=== PATIENT | male | born 2005 | race Caucasian/White ===

== ENCOUNTER 2025-10-27 23:41 | Emergency (ER) | payer MEDICARE, SELFPAY ==
[2025-10-28] VITALS: BP 133/85; PULSE 94; RESP 20; TEMP 35.9; O2SAT 96; BMI 26.4
[2025-10-28 01:20] LABS: PCR FLU A POSITIVE PCR FLU A (Negative); PCR FLU B Negative PCR FLU B (Negative); PCR RSV Negative PCR RSV (Negative); SARS PCR* Negative SARS-CoV-2 (Negative)
--- NOTE | 2025-10-28 02:12 | ED_ITS ---
HPI - General Adult General Chief complaint: Cough Stated complaint: trouble breathing Time Seen by Provider: 10/28/25 00:45 Source: patient and family Mode of arrival: ambulatory Limitations: no limitations History of Present Illness HPI narrative: 20-year-old male presents with his mother to the emergency room for shortness of breath and cough. He has had intermittent fevers. Symptoms originally started on the , worsening on the . Headache, body aches fatigue. Has been using DayQuil, NyQuil and Tylenol intermittently with temporary improvement of symptoms but they do return. He comes in because he is apprised that he is still illness long and he is feeling more short of breath. No difficulty ambulating, feels generally weak. No fever, tachypnea or hypoxia noted in triage. Patient and his mother are quite frustrated with the 2 hour wait to be seen, did not seem to notice the high acuity of other patients in the ED, in the wee hours today. No history of reactive airway disease or chronic pulmonary disease. No history of cardiac or neurological issues. He feels nauseated but is not having vomiting. No diarrhea. Did not receive a flu vaccine this year. Past medical history benign per his report, no major long-term health problems. No long-term medications or allergies. ROS is notable for the respiratory, GI and generalized symptoms as above, otherwise denies x 12 systems Related Data Previous Rx's ?Medication ?Instructions ?Recorded albuterol sulfate 90 mcg/actuation 2 inh inhalation Q4 -6H PRN 10/28/25 aerosol inhaler shortness of breath or wheez ing #8.5 grams azithromycin 250 mg tablet See Rx Instructions PO .COM PLEX #6 10/28/25 tabs inhalational spacing device #1 ea 10/28/25 (BreatheRite MDI Spacer) ondansetron 4 mg disintegrating 4 mg PO Q8H PRN nausea and 10/28/25 tablet vomiting #10 tabs prednisone 20 mg tablet 20 mg PO DAILY 3 days #3 tab s 10/28/25 Allergies Allergy/AdvReac Type Severity Reaction Status Date / Time No Known Drug Allergies Allergy Verified 10/28/25 00:12 Exam Const: Vital Signs, click to edit/add: Vital Signs - 24 hr 10/28/25 00:00 Temperature 96.6 F L Pulse Rate [Pulse Oximeter] 94 Respiratory Rate 20 Blood Pressure [Ri ght Upper Arm] 133/85 Pulse Oximetry 96 Oxygen Delivery Me thod Room Air Documenting provider has reviewed patient's vital signs: yes Common normals: no apparent distress General appearance: comfortable HENMT: Common normals: normocephalic, moist oral mucous membranes and oropharynx normal Head and scalp: normocephalic Face and sinus: normal facial exam Mouth: oral and palatal mucosa normal Throat: posterior oropharynx normal Eye: Common normals: conjunctivae normal General eye: normal appearance of both eyes Conjunctiva: conjunctiva(e) normal Neck & C-Spine: Common normals: full ROM and no lymphadenopathy General: normal visual inspection Resp: Common normals: normal respiratory effort Effort & inspection: able to speak in complete sentences Other: Rhonchi left mid posterior lung lopez. Faint expiratory wheeze bilaterally. Normal respiratory effort. Cardio: Common normals: regular rate, regular rhythm, S1 normal heart sound, S2 normal heart sound and no murmurs Rate: regular rate Rhythm: regular rhythm Heart sounds: S1 normal and S2 normal Extremity: Common normals: normal to inspection and normal capillary refill Psych: Attitude: engaged Activity/motor behavior: appropriate eye contact Attention/concentration: attention grossly intact Insight: fair Judgement: fair Skin: Common normals: no rashes or lesions noted General skin exam: no rashes or lesions noted Course Course ED Course: Flu swab collected in triage. Positive for influenza A. Exam suspicious for secondary bacterial pneumonia, worsening respiratory symptoms after initial typical flu symptoms. Counseled family on these findings. I do not recommend chest x-ray. He is not hypoxic, vitals are stable. There is no tachycardia, fever or hypotension. Blood work will not change our management today. Recommend DuoNeb, azithromycin, prednisone and Zofran for nausea. Rationale discussed. Patient prefers to pickle sorter his medications from local pharmacy. First doses will be given here in the ED. alarm symptoms reviewed that would warrant ED re-evaluation. Off work for 48 hours. See discharge instructions. Vital Signs Vital signs: Initial Vital Signs Temperature 96.6 F L 10/28/25 00:00 Temperature Source Temporal Artery Scan 10/28/25 00:00 Pulse Rate 94 10/28/25 00:00 Respiratory Rate 20 10/28/25 00:00 Blood Pressure 133/85 10/28/25 00:00 Blood Pressure Mean 101 10/28/25 00:00 Blood Pressure Position Sitting 10/28/25 00:00 Pulse Oximetry 96 10/28/25 00:00 Oxygen Delivery Method Room Air 10/28/25 00:00 Vital Signs Temperature 96.6 F L 10/28/25 00:00 Pulse Rate 94 10/28/25 00:00 Respiratory Rate 20 10/28/25 00:00 Blood Pressure 133/85 10/28/25 00:00 Pulse Oximetry 96 10/28/25 00:00 Oxygen Delivery Method Room Air 10/28/25 00:00 Temperature 96.6 F L 10/28/25 00:00 Pulse Rate 94 10/28/25 00:00 Respiratory Rate 20 10/28/25 00:00 Blood Pressure 133/85 10/28/25 00:00 Pulse Oximetry 96 10/28/25 00:00 Oxygen Delivery Method Room Air 10/28/25 00:00 Medical Decision Making Lab Data Lab results reviewed: Yes I reviewed the patient's lab results Lab results narrative: Positive for influenza a, as expected Labs: Lab Results 10/28/25 Range/Units 00:40 SARS-CoV-2 (PCR) Negative SARS-CoV-2 (Negative) Influenza Type A (PCR) POSITIVE PCR FLU A A (Negative) Influenza Type B (PCR) Negative PCR FLU B (Negative) RSV (PCR) Negative PCR RSV (Negative) Discharge Plan Discharge Clinical Impression: Influenza A, Pneumonia Patient Disposition: Home w/ Parent or Adult Condition: Stable Instructions: Community Acquired Pneumonia (DC) Additional Instructions: Your swabs are positive for influenza, which is not unexpected. 5% of people will get a secondary pneumonia after influenza, especially if they are not vaccinated. I do hear a pneumonia developing on the left side of your lungs. Thankfully you do not have any signs of complication from this. Your oxygen levels are great. I do not think a chest x-ray or blood work will help the better analyze this today since your vitals are all normal. You are given an anti nausea medicine in the emergency room. Please try to drink a lot of fluids for the next 24 hours. We have started you on an antibiotic and some prednisone to help heal the lungs. You were also given a breathing treatment. This may make you cough more for about an hour as you break up the mucus, but then should help with breathing. Go to the pharmacy in the morning and pickle sorter the anti nausea medicine, the inhaler, and the antibiotic and prednisone. He will not need to take the antibiotic and prednisone again until Monday morning. You may return to work on . Continue use of Tylenol and/or ibuprofen as needed for headache, body aches and general discomfort from the influenza. It is common to cough for over a month after pneumonia. Continued coughing is not a sign of treatment failure. Continue use of the albuterol inhaler with the spacer provided up to every 4 hours for the next few weeks as needed for shortness of breath. If you have severe shortness of breath, persistent wheezing, severe weakness or other problems after your antibiotics are completed, I would recommend re-evaluation in the clinic. Typically this type of illness can be evaluated in urgent care, primary care clinic or other similar level of care. Activity Level: Activity as Tolerated Discharge Diet: Regular Prescriptions: New azithromycin 250 mg tablet See Rx Instructions PO .COMPLEX Qty: 6 0RF Rx Instructions: For 250 mg dose pack: take 500 mg today (day 1), then 250 mg for 4 days (days 2-5) prednisone 20 mg tablet 20 mg PO DAILY 3 Days Qty: 3 0RF albuterol sulfate 90 mcg/actuation HFA aerosol inhaler 2 inh inhalation Q4-6H PRN (Reason: shortness of breath or wheezing) Qty: 8.5 1RF ondansetron 4 mg tablet,disintegrating 4 mg PO Q8H PRN (Reason: nausea and vomiting) Qty: 10 0RF (DME) BreatheRite MDI Spacer Spacer See Rx Instructions .Route Qty: 1 0RF Rx Instructions: As directed Stand Alone Forms: Schedulize Info Instructions
[2025-10-28] MEDS: ONDANSETRON ODT 4 MG TAB 8 MG PO (02:13)
[2025-10-28] MEDS: AZITHROMYCIN 250 MG TABLET 500 MG PO (02:14)
[2025-10-28] MEDS: IPRAT-ALBUT 0.5-2.5 MG/3 ML NEB 1 NEB IH (02:15)
== END 2025-10-28 02:40 | disposition home or self-care (01) ==
PROVIDERS: Emergency Provider Family Medicine
DX: J10.1 Influenza due to other identified influenza virus with other respiratory manifestations (principal); J18.9 Pneumonia, unspecified organism
CPT/HCPCS: 87631; 99283; 99284; A9270; J7512